=== PATIENT | male | born 1965 | race Asian ===

== ENCOUNTER 2017-08-11 11:59 | Outpatient (CLI) | payer OTHER ==
--- NOTE | 2017-08-11 14:05 | RAD ---
LEFT HAND 3 VIEWS: HISTORY: Polyarthropathy, left hand pain. FINDINGS/IMPRESSION: No fracture, dislocation, bony destruction, erosive changes, or osteophyte formation are seen. POS: [facility]
--- NOTE | 2017-08-11 14:07 | RAD ---
RIGHT HAND THREE VIEWS: History: Poly arthropathy, right hand pain. FINDINGS/IMPRESSION: No acute fracture, dislocation, or bony destruction is seen. Minimal degenerative changes are noted. POS: [facility]
[2017-08-13 11:37] LABS: ANA Symphony (Qualitative) Negative (Negative); ANA Symphony (Quantitative) Less than 0.07 Ratio (<0.7 Negative); dsDNA IgG Antibody Less than 0.5 IU/mL (<10 Negative)
== END 2017-08-11 12:00 | disposition home or self-care (01) ==
LOC: SCSRAD 11:59
PROVIDERS: ATTEND Family Medicine
DX: M13.0 Polyarthritis, unspecified (principal)
CPT/HCPCS: 36415; 86038; 86225